=== PATIENT | male | born 1940 | race Two or more races ===

== ENCOUNTER 2024-10-13 10:55 | Emergency (ER) | payer MEDICARE, OTHER ==
[~2024-10-13] VITALS: Ht 174 cm; Wt 100.0 kg
[~2024-10-13 10:55] MED LIST: MECL-302 PO
[2024-10-13 11:33] VITALS: BP 167/82; PULSE 75; RESP 18; TEMP 97.4; O2SAT 96
[2024-10-13] MEDS ORDERED: WARF-55 PO (15:30)
== END 2024-10-13 15:42 | disposition home or self-care (01) ==
LOC: ER 10:56
DX: I48.20 Chronic atrial fibrillation, unspecified (principal); M79.642 Pain in left hand; I50.9 Heart failure, unspecified; Z79.899 Other long term (current) drug therapy; Z79.01 Long term (current) use of anticoagulants
CPT/HCPCS: 73130; 99283